=== PATIENT | female | born 1975 | race Caucasian/White ===

== ENCOUNTER 2017-12-08 11:13 | Emergency (ER) | payer OTHER ==
--- NOTE | 2017-12-08 12:11 | EDPHY ---
H & P Stated Complaint: fall Time Seen by Provider: 12/08/17 12:03 HPI/ROS: CHIEF COMPLAINT: Fall hit head, headache, back pain, nausea, HISTORY OF PRESENT ILLNESS: 42-year-old female generally healthy with no history of chronic pulmonary disease, no anticoagulant use, arrives via private vehicle with her family members. Patient works at [employer]. She states that she was going down hard tile stairs today, slipped and impacted the occiput of her head with no loss of consciousness. She has been complaining of emotional lability, nausea, vomiting ever since this incident. This occurred this morning. This was accidental. Denies alcohol or drug use. She is also complaining of low back pain. Denies peripheral paresthesia, weakness, numbness. Denies: Chest pain, genitalia injury or straddle injury, abdominal pain or injury. She fell down approximately 3 stairs. REVIEW OF SYSTEMS: A ten point review of systems was performed and is negative with the exception of the items mentioned in the HPI PAST MEDICAL/SURGICAL HISTORY: no anticoagulant use, no relevant medical/ surgical history SOCIAL HISTORY: denies alcohol use at time of incident PHYSICAL EXAM 1) GENERAL: Well-developed, well-nourished, alert and oriented. Appears to be in no acute distress. She appears anxious, she is emotionally labile.. 2) HEAD: Normocephalic, atraumatic 3) HEENT: Pupils equal, round, reactive to light bilaterally. Negative Horners. Nasopharynx, oropharynx, clear. No deformity or angulation of nose. No septal hematoma. No rhinorrhea. No oral trauma. Ears bilaterally with normal tympanic membranes. No hemotympanum. No fluid or blood in the external auditory canal. No raccoon eyes. No Carter sign. Teeth are normally aligned with no gross malocclusion, TMJ bilaterally nontender, facial bones nontender including the zygomatic arch, maxilla mandible. 4) NECK: Patient is unable to completely differentiate between true midline pain versus just lateral of midline pain.Cervical collar is replaced at that point.][and patient has no complaints of midline cervical pain, no effusion noted, trachea midline, no JVD. 5) LUNGS: Clear to auscultation bilaterally, no wheezes, no rhonchi, no retractions. No obvious signs of trauma. No chest wall pain. No flaring, no grunting. Moving symmetrically. No crepitus. 6) HEART: [Regular rate and rhythm, 7) ABDOMEN: No guarding, no rebound, no focal tenderness, no peritoneal signs, no signs of trauma, no ecchymosis 8) MUSCULOSKELETAL: Moving all extremities, no focal areas of tenderness, no obvious trauma. 9) BACK: Unable to fully differentiate true midline versus just lateral of midline is lumbar pain. No visible signs of trauma. Pelvic bones are nontender. Otherwise, No midline vertebral tenderness, no fluctuance, no step- off, no obvious trauma, no visual or palpable abnormality. 10) SKIN: No laceration. No abrasion DIFFERENTIAL DIAGNOSIS: Not necessarily in any particular order, my differential diagnosis includes, but is not limited to, concussion, skull fracture, intraparenchymal contusion, subarachnoid, subdural and epidural hematoma. The patient understands that this diagnosis is provisional and can never be 100% accurate. - Personal History LMP (Females 10-55): 1-7 Days Ago Current Tetanus/Diphtheria Vaccine: Yes Current Tetanus Diphtheria and Acellular Pertussis (TDAP): Yes - Medical/Surgical History Hx Asthma: Yes Hx Chronic Respiratory Disease: No Hx Diabetes: No Hx Cardiac Disease: No Hx Renal Disease: No Hx Cirrhosis: No Hx Alcoholism: No Hx HIV/AIDS: No Hx Splenectomy or Spleen Trauma: No Other PMH: asthma, - Social History Smoking Status: Never smoked Constitutional: Initial Vital Signs Temperature (C) 36.5 C 12/08/17 11:20 Heart Rate 88 12/08/17 11:20 Respiratory Rate 16 12/08/17 11:20 Blood Pressure 124/77 H 12/08/17 11:20 O2 Sat (%) 99 12/08/17 11:20 O2 Delivery Mode Room Air Allergies/Adverse Reactions: hydrocodone [From Vicodin] Allergy (Verified 12/08/17 11:19) Home Medications: Medication Instructions Recorded Flaxseed 12/08/17 Lutein 12/08/17 Ondansetron Odt [Zofran Odt] 4 mg PO Q4PRN PRN #10 tab 12/08/17 Ritalin 10mg (*) 12/08/17 Medical Decision Making - Diagnostics Imaging Results: Imaging Impressions Head CT 12/08/17 11:52 Impression: Normal CT head without contrast. CT cervical spine without contrast. Technique: 1.5-mm helical images were obtained of the chest from the lung apices through the lung bases. This was done without intravenous contrast. Multiplanar reformation was performed. Radiation dose reduction technique was utilized. Findings: There is apical pleural thickening bilaterally which is worsened over the interval from comparison chest CT from May 2011. Additionally there is an irregular 5 mm pulmonary nodule at the right lung apex and some scarring posteriorly in the right upper lobe. No evidence for acute fracture of the cervical spine. Disk heights are maintained. No significant spondylolisthesis. No evidence for prevertebral soft-tissue swelling. No significant neural foraminal or spinal canal encroachment. Impression: 1. No evidence for acute cervical spine fracture. 2. Apical pleural thickening bilaterally which has worsened over the interval. An irregular 5-mm pulmonary nodule is seen in the right lung apex and some mild scarring posteriorly in the right upper lobe. Consider CT of the chest and pulmonary consultation for further evaluation and/or six-month follow-up CT. Results called and discussed with Eduar Hinds at 12/08/2017 12:51. Cervical Spine CT 12/08/17 12:10 Impression: Normal CT head without contrast. CT cervical spine without contrast. Technique: 1.5-mm helical images were obtained of the chest from the lung apices through the lung bases. This was done without intravenous contrast. Multiplanar reformation was performed. Radiation dose reduction technique was utilized. Findings: There is apical pleural thickening bilaterally which is worsened over the interval from comparison chest CT from May 2011. Additionally there is an irregular 5 mm pulmonary nodule at the right lung apex and some scarring posteriorly in the right upper lobe. No evidence for acute fracture of the cervical spine. Disk heights are maintained. No significant spondylolisthesis. No evidence for prevertebral soft-tissue swelling. No significant neural foraminal or spinal canal encroachment. Impression: 1. No evidence for acute cervical spine fracture. 2. Apical pleural thickening bilaterally which has worsened over the interval. An irregular 5-mm pulmonary nodule is seen in the right lung apex and some mild scarring posteriorly in the right upper lobe. Consider CT of the chest and pulmonary consultation for further evaluation and/or six-month follow-up CT. Results called and discussed with Eduar Hinds at 12/08/2017 12:51. Lumbar Spine X-Ray 12/08/17 12:10 Impression: Nothing acute identified. Images reviewed myself ED Course/Re-evaluation: Patient was re-evaluated with serial examinations. Reviewed her imaging studies showing no definitive acute posttraumatic sequelae. She is answering questions appropriately other she does continue to experience emotional lability. We discussed post concussive head injury precautions instructions. Think the patient can be discharged. I have given her Dr. Chika Amaya follow-up information. Her nausea has resolved with antiemetic administration. She feels comfortable being discharged. Patient was also noted to have pleural thickening and a pulmonary nodule on the CT of the cervical spine. I discussed this with the patient and stressed the importance of follow-up as she will more than likely necessitate stay dedicated CT imaging of the chest. I saw this patient independently based on established practice protocols. Care of patient under supervision of primary supervising physician Dr Hinds with whom I discussed care. - Data Points Medications Given: Discontinued Medications Acetaminophen (Tylenol 160mg/5ml Oral Liquid) 1,000 mg PO EDNOW ONE Stop: 12/08/17 13:41 Last Admin: 12/08/17 13:44 Dose: Not Given Acetaminophen (Tylenol) 1,000 mg PO EDNOW ONE Stop: 12/08/17 13:43 Last Admin: 12/08/17 13:43 Dose: 1,000 mg Ondansetron HCl (Zofran Odt) 4 mg PO EDNOW ONE Stop: 12/08/17 13:14 Last Admin: 12/08/17 13:26 Dose: 4 mg Departure - Departure Disposition: Home, Routine, Self-Care Clinical Impression: Head injury due to trauma Qualifiers: Encounter type: initial encounter Qualified Code(s): S09.90XA - Unspecified injury of head, initial encounter Fall down stairs Qualifiers: Encounter type: initial encounter Qualified Code(s): W10.8XXA - Fall (on) (from ) other stairs and steps, initial encounter Condition: Good Instructions: Head Injury (ED), Concussion (ED) Additional Instructions: ALTHOUGH THERE IS NO EVIDENCE OF SERIOUS HEAD INJURY AT THIS TIME, DELAYED SIGNS CAN APPEAR 24 TO 48 HOURS AFTER INJURY. PLEASE RETURN TO THE EMERGENCY DEPARTMENT (ED) IMMEDIATELY IF YOU HAVE INCREASED HEADACHE, PERSISTENT HEADACHE , VOMITING, WEAKNESS, CONFUSION OR VISUAL PROBLEMS. WE RECOMMEND THAT YOU DO NOT RESUME CONTACT SPORTS OR ACTIVITIES THAT TAKE COORDINATION OR BALANCE SUCH SKIING OR RIDING A BICYCLE UNTIL CLEARED TO DO SO BY YOUR DOCTOR OR BY A NEUROLOGIST. You were noted to have a pulmonary nodule and pleural thickening on the limited views of the your cervical spine CT scan. Recommend you follow up with your primary care provider about this as you will more than likely necessitate dedicated chest imaging. Referrals: Chika Amaya MD [Medical Doctor] - 2-3 days, call for appt. BILLIE JANE [Other] - 5-7 days, call for appt. Prescriptions: Ondansetron Odt [Zofran Odt] 4 mg PO Q4PRN PRN #10 tab PRN Reason: Nausea
[2017-12-08] MEDS ORDERED: ONDANSETRON DISINTEGRATING 4 MG TAB PO ONE (13:13)
[2017-12-08] MEDS ORDERED: ACETAMINOPHEN 500 MG TAB ONE (13:39)
[2017-12-08] MEDS ORDERED: ACETAMINOPHEN 160 MG/5 ML UDCUP PO ONE (13:40)
[2017-12-08] MEDS ORDERED: ACETAMINOPHEN 500 MG TAB PO ONE (13:42)
[2017-12-08 14:15] VITALS: BP 116/68
== END 2017-12-08 14:15 | disposition home or self-care (01) ==
DX: S09.90XA Unspecified injury of head, initial encounter (principal); J45.909 Unspecified asthma, uncomplicated; W10.8XXA Fall (on) (from) other stairs and steps, initial encounter